=== PATIENT | male | born 1955 | race Caucasian/White ===

== ENCOUNTER → 2021-10-27 10:43 | Outpatient (CLI) | payer MEDICARE, OTHER, SELFPAY ==
[2021-10-27 12:39] LABS: Add Manual Diff / Slide Review NO; Basophils Absolute Auto 100 /uL (0-100); Basophils Percent Auto 0.8 % (0-2); Eosinophils Absolute Auto 200 /uL (0-450); Eosinophils Percent Auto 3.1 % (2-4); Hematocrit 46.2 % (41-53); Hemoglobin 15.6 g/dL (13.5-17.5); Lymphocytes Absolute Auto 1500 /uL (1100-4500); Lymphocytes Percent Auto 22.4 % (25-40); Mean Corpuscular HGB Conc 33.7 % (30-36); Mean Corpuscular Hemoglobin 31.9 PG (26-34); Mean Corpuscular Volume 94.5 fL (80-100); Monocytes Absolute Auto 700 /uL (0-900); Neutrophils Absolute Auto 4200 /uL (1500-7000); Neutrophils Percent Auto 63.7 % (50-75); Platelet Count 171 X10^3/uL (150-400); Red Blood Cell Count 4.89 X10^6/uL (4.5-5.9); White Blood Cell Count 6.6 X10^3/uL (4.5-11.0)
[2021-10-27 13:22] LABS: Alanine Aminotransferase 24 IU/L (<50); Albumin 4.7 g/dL (3.5-5.0); Albumin Globulin Ratio 1.7 (1.0-2.8); Alkaline Phosphatase 54 U/L (38-126); Aspartate Aminotransferase 29 IU/L (17-59); BUN Creatinine Ratio 22.3 (6-22); Blood Urea Nitrogen 23 mg/dL (9-20); Calcium 9.5 mg/dL (8.4-10.2); Carbon Dioxide 29 mmol/L (22-32); Chloride 104 mmol/L (98-107); Cholesterol 143 mg/dL (140-199); Estimated Glomerular Filt Rate > 60 mL/min (>60); Globulin 2.7 g/dL (1.7-4.1); Glucose 103 mg/dL (80-110); HDL Cholesterol 35 mg/dL (40-60); HEMOLYSIS < 15 (0-50); LDL Cholesterol Calculated 83 mg/dL (<100); Potassium 4.4 mmol/L (3.4-5.1); Sodium 141 mmol/L (137-145); Total Protein 7.4 g/dL (6.3-8.2); Triglycerides 125 mg/dL (35-150)
[2021-10-27 13:47] LABS: Prostate Specific Antigen Scrn 0.463 ng/mL (0.1-4.0)
== END ==
PROVIDERS: PCP Family Medicine; Referring Provider Family Medicine; Visit Provider Family Medicine
DX: E78.6 Lipoprotein deficiency (principal); Z12.5 Encounter for screening for malignant neoplasm of prostate; I10 Essential (primary) hypertension
CPT/HCPCS: 36415; 80053; 80061; 85025; G0103

== ENCOUNTER → 2022-12-24 15:09 | Outpatient (CLI) | payer MEDICARE, OTHER, SELFPAY ==
--- NOTE | 2022-12-24 15:12 | DI.RAD.S_ITS ---
PROCEDURE: XR KNEE LT 3V INDICATIONS: Left knee pain TECHNIQUE: 3 views of the knee were acquired. COMPARISON: None. FINDINGS: Bones: No fractures or dislocations. No suspicious bony lesions. Soft tissues: Small joint effusion. No suspicious soft tissue calcifications. IMPRESSION: Small knee joint effusion. Minimal degenerative change. Dictated by: Paddy Gonzalez M.D. on 12/24/2022 at 16:36 Approved by: Paddy Gonzalez M.D. on 12/24/2022 at 16:36
== END ==
PROVIDERS: PCP Family Medicine; Referring Provider Physician Assistant; Visit Provider Physician Assistant
DX: M25.562 Pain in left knee (principal); M25.462 Effusion, left knee
CPT/HCPCS: 73562

== ENCOUNTER → 2023-02-15 12:22 | Outpatient (CLI) | payer MEDICARE, OTHER, SELFPAY ==
--- NOTE | 2023-02-15 12:25 | DI.RAD.S_ITS ---
PROCEDURE: XR CHEST 2V INDICATIONS: tb exposure, chronic cough TECHNIQUE: 2 views of the chest were acquired. COMPARISON: None. FINDINGS: Surgical changes and devices: None. Lungs and pleura: Lungs are clear. No pleural effusions or pneumothorax. Mediastinum: Mediastinal contours are normal. Heart size is normal. Bones and chest wall: No suspicious bony abnormalities. Soft tissues appear unremarkable. IMPRESSION: No source for cough identified radiographically. Dictated by: James Simmons RRA Interpreted: Maikol Maravilla MD on 02/15/2023 at 12:52 Transcribed by: JUAN on 02/15/2023 at 12:52 Approved by: Maikol Maravilla M.D. on 02/15/2023 at 15:23
== END ==
PROVIDERS: PCP Family Medicine; Referring Provider Family Medicine; Visit Provider Family Medicine
DX: Z20.1 Contact with and (suspected) exposure to tuberculosis (principal); R05.3 Chronic cough
CPT/HCPCS: 71046

== ENCOUNTER → 2023-03-07 13:30 | Outpatient (CLI) | payer MEDICARE, OTHER, SELFPAY ==
[2023-03-07 14:14] LABS: Add Manual Diff / Slide Review NO; Basophils Absolute Auto 100 /uL (0-100); Basophils Percent Auto 1.1 % (0-2); Eosinophils Absolute Auto 200 /uL (0-450); Eosinophils Percent Auto 2.9 % (2-4); Hematocrit 45.4 % (41-53); Hemoglobin 15.4 g/dL (13.5-17.5); Lymphocytes Absolute Auto 1600 /uL (1100-4500); Lymphocytes Percent Auto 24.7 % (25-40); Mean Corpuscular HGB Conc 33.9 % (30-36); Mean Corpuscular Hemoglobin 31.9 PG (26-34); Mean Corpuscular Volume 94.1 fL (80-100); Monocytes Absolute Auto 800 /uL (0-900); Neutrophils Absolute Auto 3800 /uL (1500-7000); Neutrophils Percent Auto 59.3 % (50-75); Platelet Count 181 X10^3/uL (150-400); Red Blood Cell Count 4.83 X10^6/uL (4.5-5.9); Red Cell Distribution Width 13.1 % (11.6-14.8); White Blood Cell Count 6.4 X10^3/uL (4.5-11.0)
[2023-03-07 14:26] LABS: Alanine Aminotransferase 26 IU/L (<50); Albumin 4.6 g/dL (3.5-5.0); Albumin Globulin Ratio 1.6 (1.0-2.8); Alkaline Phosphatase 62 U/L (38-126); Aspartate Aminotransferase 27 IU/L (17-59); BUN Creatinine Ratio 23.2 (6-22); Bilirubin Total 0.9 mg/dL (0.2-1.3); Blood Urea Nitrogen 22 mg/dL (9-20); Calcium 10.1 mg/dL (8.4-10.2); Carbon Dioxide 28 mmol/L (22-32); Chloride 100 mmol/L (98-107); Cholesterol 145 mg/dL (140-199); Estimated Glomerular Filt Rate > 60 mL/min (>60); Globulin 2.8 g/dL (1.7-4.1); Glucose 107 mg/dL (80-110); HDL Cholesterol 35 mg/dL (40-60); HEMOLYSIS < 15 (0-50); LDL Cholesterol Calculated 79 mg/dL (<100); Potassium 3.9 mmol/L (3.4-5.1); Sodium 140 mmol/L (137-145); Total Protein 7.4 g/dL (6.3-8.2); Triglycerides 155 mg/dL (35-150)
[2023-03-10 19:37] LABS: QuantiFERON Mitogen Value >10.00 IU/mL (.); QuantiFERON TB Gold Plus Negative (Negative)
== END ==
PROVIDERS: PCP Family Medicine; Referring Provider Family Medicine; Visit Provider Family Medicine
DX: I10 Essential (primary) hypertension (principal); Z12.5 Encounter for screening for malignant neoplasm of prostate; E78.6 Lipoprotein deficiency; R05.3 Chronic cough; Z20.1 Contact with and (suspected) exposure to tuberculosis
CPT/HCPCS: 36415; 80053; 80061; 85025; 86480; G0103

== ENCOUNTER 2023-05-09 08:21 | Day surgery (SDC) | payer MEDICARE, OTHER, SELFPAY ==
--- NOTE | 2023-05-09 | PATH_ITS ---
[facility] Accession Number: [id number] No. of containers..02 Tissue . 01 Material submitted: . PART A: stomach - ANTRUM PART B: stomach - GASTRIC BODY . 01 Diagnosis: A. Stomach, Antrum, Biopsy: Antral mucosa with mild chronic gastritis and intestinal metaplasia. Negative for Helicobacter by immunohistochemistry. Negative for dysplasia and malignancy. . B. Stomach, Body, Biopsy: Body-type mucosa with no diagnostic abnormality. Negative for Helicobacter by immunohistochemistry. Negative for intestinal metaplasia. Negative for dysplasia and malignancy. MRV 05/15/2023 1714 Local . 01 Electronically signed: . Kasey Reyes MD, Pathologist NPI- [id number] . 01 Gross description: . Part A: ANTRUM: Received in formalin is multiple fragment(s) of iyer, soft tissue measuring 1.0 x 0.5 x 0.2 cm in aggregate submitted entirely in 1 cassette(s) Part B: GASTRIC BODY: Received in formalin is 2 fragment(s) of iyer, soft tissue measuring 0.4 x 0.3 x 0.3 cm to 0.3 x 0.3 x 0.2 cm submitted entirely in 1 cassette(s) /AAY 05/10/2023 0452 Local . 01 Microscopic: . A. An immunohistochemical stain was performed to evaluate for Helicobacter organisms and is negative. The control stain showed appropriate reactivity. . B. An immunohistochemical stain was performed to evaluate for Helicobacter organisms and is negative. The control stain showed appropriate reactivity. . * This test was developed and its performance characteristics determined by [facility]. It has not been cleared or approved by the U.S. Food and Drug Administration. The FDA has determined that such clearance or approval is not necessary. This test is used for clinical purposes. It should not be regarded as investigational or for research. . 01 Pathologist provided ICD-10: K31.A0 . 01 CPT . 665881, 516135, B40414 Specimen Comment: A courtesy copy of this report has been sent to [phone] Performed at: 01 [facility] [address] [place] [address], [place], [place] [id number] MD Maicol Mccracken MD Phone: [phone]
[2023-05-09 08:57] VITALS: BMI 33.4
[2023-05-09 09:05] VITALS: BP 155/101; PULSE 77; RESP 16; TEMP 36.8; O2SAT 98
[2023-05-09] MEDS: LACTATED RINGERS 1,000 ML 42 ML IV (09:08)
--- NOTE | 2023-05-09 10:08 | P.HP_ITS ---
History of Present Illness History of Present Illness Date Patient Seen: 05/09/23 Time Patient Seen: 10:09 Chief complaint: SDC Narrative: Rancho is a 67-year-old man with hiatal hernia, a chronic cough and GERD. See the office note from March for details. 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 Folliculitis Hiatal hernia BMI 34.0-34.9,adult Screening for prostate cancer Low HDL (under 40) HTN (hypertension) Social History household members: spouse Smoking Status: Former smoker alcohol intake: current Meds Home Medications and Allergies Home Medications Medication Instructions Recorded Confirmed Type ascorbic acid (vitamin C) 500 mg 1,000 mg PO QDAY ##0 05/07/16 04/01/23 History tablet cholecalciferol (vitamin D3) 25 1,000 unit PO QDAY ##0 05/07/16 04/01/23 History mcg (1,000 unit) tablet (Vitamin D3) multivitamin (Multiple Vitamins 1 tab PO QDAY ##0 05/07/16 04/01/23 History tablet) clindamycin phosphate 1 % topical 1 applic topical BEDTIME #60 mL 01/03/22 04/01/23 Rx solution clyndamycin phosphate .Route PRN 01/03/22 04/01/23 History allopurinol 100 mg tablet 200 mg (2 x 100 mg) PO DAILY PRN 02/15/23 04/01/23 Rx gout prevention #180 tabs atorvastatin 10 mg tablet 10 mg PO DAILY #90 tabs 02/15/23 05/09/23 Rx carboxymethylcellulose sodium 0.25 2 drp EYE-BOTH BID PRN dry eye(s) 02/15/23 04/01/23 Rx % eye drops (Moisturizing #15 mL Lubricant) colchicine 0.6 mg tablet (Colcrys) 0.6 mg PO TID PRN gout flare #30 02/15/23 04/01/23 Rx tabs fluticasone propionate 50 1 spray intranasal DAILY #16 grams 02/15/23 04/01/23 Rx mcg/actuation nasal spray,suspension losartan 100 1 tab PO DAILY #90 tabs 02/15/23 04/01/23 Rx mg-hydrochlorothiazide 12.5 mg tablet omeprazole 20 mg capsule,delayed 20 mg PO QDAY #90 caps 02/15/23 05/09/23 Rx release hydrochlorothiazide 12.5 mg tablet 12.5 mg PO DAILY 05/09/23 05/09/23 History losartan 100 mg tablet 100 mg PO DAILY 05/09/23 05/09/23 History Allergies Allergy/AdvReac Type Severity Reaction Status Date / Time No Known Allergies Allergy Uncoded 05/09/23 08:52 Exam Vital Signs (past 8 hours): - 05/09/23 09:05 Temperature 98.2 F Pulse Rate 77 Respiratory Rate 16 Blood Pressure 155/101 H Pulse Oximetry 98 Oxygen Delivery Method Room Air Oxygen Delivery Method Room Air Const General: No acute distress and anxious Resp Effort & Inspection: normal respiratory effort Assessment & Plan Assessment and plan (1) Chronic cough: Status: Acute Plan We reviewed the risks and benefits of EGD for GERD and a chronic cough he would like to proceed.
[2023-05-09 10:25] VITALS: BP 104/72; PULSE 80; RESP 21; TEMP 36.2; O2SAT 95
--- NOTE | 2023-05-09 10:29 | PM.OP.EGD ---
Operative Date/Time/Diagnoses Date of procedure: 05/09/23 Time of procedure: 10:29 Pre-op diagnosis: Chronic cough Post-op diagnosis: same Procedure & Clinicians Study performed: Colonoscopy Same procedure as scheduled: Yes Surgeon: Michael Mclaughlin Procedure Notes Procedure in detail: Surgeon: Michael Mclaughlin MD Anesthesia: Shawnee Saldaña CRNA A timeout was performed. A bite blocked was placed. The patient was positioned in the left lateral decubitus position. Anesthesia was administered. The endoscope was inserted through the bite block and passed through the esophagus and stomach and into the duodenum. The duodenal mucosa appeared normal. The scope was withdrawn into the duodenal bulb and no abnormalities were seen. The scope was withdrawn into the stomach. There was mild antritis and random biopsies were taken from the antrum with cold forceps. There was 1 small patch of erythematous mucosa in the body of the stomach measuring a proximally 1 cm and it was biopsied with cold forceps. The rest of the stomach was normal. The scope was retroflexed and no clinically significant hiatal hernia was seen. The scope was withdrawn into the esophagus and no abnormalities were seen. The remainder of the esophagus was normal. The scope was withdrawn. The patient was awakened and brought to recovery. Sedation time: 7 minutes Findings: Mild antritis and gastritis Post-procedure Disposition: PACU
[2023-05-09 10:30] VITALS: BP 108/75; PULSE 73; RESP 18; O2SAT 99
[2023-05-09 10:35] VITALS: BP 116/71; PULSE 89; RESP 18; TEMP 36.2; O2SAT 96
[2023-05-09 10:40] VITALS: BP 120/79; PULSE 78; RESP 20; O2SAT 94
== END 2023-05-09 11:03 | disposition home or self-care (01) ==
PROVIDERS: PCP Family Medicine; Referring Provider Surgery; Visit Provider Surgery
PROC: 0DJ08ZZ Inspection of Upper Intestinal Tract, Via Natural or Artificial Opening Endoscopic (ICD-10-PCS; CPT 43235; principal; 2023-05-09 09:45)
DX: R05.3 Chronic cough (principal); K29.50 Unspecified chronic gastritis without bleeding; K22.70 Barrett's esophagus without dysplasia
CPT/HCPCS: 43239; J2704

== ENCOUNTER → 2024-04-08 11:38 | Outpatient (CLI) | payer MEDICARE, OTHER, SELFPAY ==
[2024-04-08 13:03] LABS: Add Manual Diff / Slide Review NO; Basophils Absolute Auto 100 /uL (0-100); Basophils Percent Auto 1.2 % (0-2); Eosinophils Absolute Auto 300 /uL (0-450); Eosinophils Percent Auto 3.9 % (2-4); Hematocrit 48.1 % (41-53); Hemoglobin 16.1 g/dL (13.5-17.5); Lymphocytes Absolute Auto 1500 /uL (1100-4500); Lymphocytes Percent Auto 23.4 % (25-40); Mean Corpuscular HGB Conc 33.4 % (30-36); Mean Corpuscular Hemoglobin 32.2 PG (26-34); Mean Corpuscular Volume 96.3 fL (80-100); Monocytes Absolute Auto 600 /uL (0-900); Monocytes Percent Auto 8.7 % (3-14); Neutrophils Absolute Auto 4100 /uL (1500-7000); Neutrophils Percent Auto 62.8 % (50-75); Platelet Count 207 X10^3/uL (150-400); Red Blood Cell Count 4.99 X10^6/uL (4.5-5.9); Red Cell Distribution Width 13.1 % (11.6-14.8); White Blood Cell Count 6.5 X10^3/uL (4.5-11.0)
[2024-04-08 13:27] LABS: Alanine Aminotransferase 34 IU/L (<50); Albumin 4.8 g/dL (3.5-5.0); Albumin Globulin Ratio 1.8 (1.0-2.8); Alkaline Phosphatase 59 U/L (38-126); Aspartate Aminotransferase 46 IU/L (17-59); BUN Creatinine Ratio 23.1 (6-22); Bilirubin Total 1.1 mg/dL (0.2-1.3); Blood Urea Nitrogen 24 mg/dL (9-20); Calcium 9.8 mg/dL (8.4-10.2); Carbon Dioxide 27 mmol/L (22-32); Chloride 103 mmol/L (98-107); Cholesterol 169 mg/dL (140-199); Estimated Glomerular Filt Rate > 60 mL/min (>60); Globulin 2.6 g/dL (1.7-4.1); Glucose 92 mg/dL (80-110); HDL Cholesterol 46 mg/dL (40-60); HEMOLYSIS < 15 (0-50); LDL Cholesterol Calculated 95 mg/dL (<100); Potassium 4.4 mmol/L (3.4-5.1); Sodium 138 mmol/L (137-145); Total Protein 7.4 g/dL (6.3-8.2); Triglycerides 139 mg/dL (35-150)
[2024-04-08 13:54] LABS: Prostate Specific Antigen Scrn 0.597 ng/mL (0.1-4.0)
== END ==
PROVIDERS: PCP Family Medicine; Referring Provider Family Medicine; Visit Provider Family Medicine
DX: I10 Essential (primary) hypertension (principal); Z12.5 Encounter for screening for malignant neoplasm of prostate; E78.6 Lipoprotein deficiency; E78.5 Hyperlipidemia, unspecified; N48.1 Balanitis; R39.9 Unspecified symptoms and signs involving the genitourinary system
CPT/HCPCS: 36415; 80053; 80061; 85025; G0103

== ENCOUNTER → 2024-12-02 12:45 | Outpatient (CLI) | payer MEDICARE, OTHER, SELFPAY ==
--- NOTE | 2024-12-02 12:46 | DI.ECHO.S_ITS ---
[facility] : : [id number] : : [place] : : [id number] : : Phone: [phone] Echocardiogram Report + + :Name: NOÉ DERAS JR Study Date: 12/02/2024 Height: 68 in : :[facility] ReadingLocation: Weight: 205 lb : : Gender: Male BSA: 2.1 m2 : :: 1955 Age: 69 yrs BP: 138/93 mmHg: :Reason For Study: SYSTOLIC MURMUR : :Ordering Physician: KHANH STEWART Performed By: Tremayne Levy : :Referring: KHANH STEWART : + + Interpretation Summary 1) Normal left ventricular thickness, size, wall motion, and systolic function (EF 55-60%). 2) Normal right ventricular size and function. 3) No significant valvular abnormalities. 4) No prior Echo available for comparison. Procedure: A two-dimensional transthoracic echocardiogram with color flow and Doppler was performed. The study quality was technically good. There is no prior echocardiogram noted for this patient. The patient was in normal sinus rhythm during the exam. Left Ventricle: The left ventricle is normal in size. There is normal left ventricular wall thickness. Proximal septal thickening is noted. There is no ventricular septal defect visualized. The ejection fraction is estimated to be 55-60%. There are no focal wall motion abnormalities. Diastolic parameters suggest a relaxation abnormality of the left ventricle, consistent with probable normal filling pressures. Right Ventricle: The right ventricle is normal in size and function. Atria: The left atrial size is normal. Right atrial size is normal. There is no Doppler evidence for an interatrial shunt. Mitral Valve: The mitral valve leaflets appear mildly thickened. There is trace mitral regurgitation. Aortic Valve: The aortic valve is trileaflet. The aortic valve opens well. There is no aortic valve stenosis. No aortic regurgitation is present. Tricuspid Valve: The tricuspid valve leaflets are thin and pliable. No tricuspid regurgitation. Pulmonary artery pressures cannot be estimated because of the lack of a measurable TR jet velocity. Pulmonic Valve: The pulmonic valve is not well seen, but is grossly normal. There is no pulmonic valvular regurgitation. Great Vessels: The aortic root is normal size. The dimensions of the ascending aorta are normal. The pulmonary artery is not well visualized, but is probably normal size. The inferior vena cava was not visualized. Pericardium/ Pleura There is no pericardial effusion. MMode/2D Measurements & Calculations LVIDd: 4.7 cm LVOT diam: 2.1 cm LVIDs: 3.6 cm Ao root diam: 3.8 cm FS: 22.8 % asc Aorta Diam: 3.6 cm EPSS: 1.0 cm IVSd: 0.90 cm LVPWd: 0.97 cm LV reich. diameter/BSA (cm/m^2): 2.3 LV sys. diameter/BSA (cm/m^2): 1.7 LA A2 area: 15.5 cm2 RA long axis: 4.8 cm LA A4 area: 21.9 cm2 RA area: 14.0 cm2 LA length (vol): 6.0 cm RA vol: 34.7 ml LA vol: 48.2 ml RA : 16.8 ml/m2 LA vol index: 23.4 ml/m2 RVD1 (basal): 3.4 cm RVD2 (mid): 3.2 cm TAPSE: 2.3 cm Doppler Measurements & Calculations Ao V2 max: 115.3 cm/sec LVOT Max Bairon: 80.3 cm/sec Ao V2 mean: 85.7 cm/sec LV V1 max P.6 mmHg Ao max P.3 mmHg LV V1 VTI: 16.9 cm Ao mean P.2 mmHg CARA(I,D): 2.6 cm2 Ao V2 VTI: 22.8 cm CARA(V,D): 2.4 cm2 sev ratio: 0.74 CARA indexed to BSA (cm^2/m^2): 1.2 MV E max bairon: 46.9 cm/sec PA V2 max: 95.4 cm/sec MV A max bairon: 64.3 cm/sec PA V2 mean: 64.7 cm/sec MV E/A: 0.73 PA mean P.8 mmHg Med Peak E' Bairon: 6.1 cm/sec PA pr(Accel): 44.7 mmHg E/E' med: 7.7 Lat Peak E' Bairon: 7.3 cm/sec E/E' lat: 6.4 E/e' average: 7.1 MV dec time: 0.28 sec SV(LVOT): 58.4 ml Reading Physician:05:33 PM
== END ==
LOC: ECHO 12:46
PROVIDERS: PCP Family Medicine; Referring Provider Family Medicine; Visit Provider Family Medicine
DX: R01.1 Cardiac murmur, unspecified (principal)
CPT/HCPCS: 93306